=== PATIENT | male | born 1995 | race Caucasian/White ===

== ENCOUNTER 2023-01-19 23:39 | Emergency (ER) | payer OTHER, SELFPAY ==
[2023-01-19 23:44] VITALS: BP 135/85; PULSE 84; PULSE 88; RESP 18; TEMP 36.8; O2SAT 99; BMI 23.7
[2023-01-20 00:40] VITALS: BP 128/84; PULSE 78; RESP 18; TEMP 36.7; O2SAT 99
--- NOTE | 2023-01-21 11:13 | ED_ITS ---
HPI - Extremity Injury (Lower) General Chief Complaint: Extremity Pain/Injury, Lower Stated Complaint: Left foot toe injury Time Seen by Provider: 01/19/23 23:44 History of Present Illness HPI Narrative: 27-year-old young man here with significant other with complaint of left great toe pain. Dropped a heavy item on this toe late yesterday and pain has been persistent and throbbing. Hard to rest. Able to ambulate without marked difficulty. It appears that has consider that there is a subungual hematoma some sort and so head tried trephinated with a paperclip and machine brusher without success. Related Data Previous Rx's Medication Instructions Recorded dextroamphetamine-amphetamine 10 10 mg PO BID #60 tabs 01/21/23 mg tablet (Adderall) Allergies Allergy/AdvReac Type Severity Reaction Status Date / Time hydrocodone Allergy Intermediate Rash Verified 01/19/23 23:46 [facility] Medical History History of concussion (2014) ?Z87.820 - Personal history of traumatic brain injury (ICD-10) History of reduction of closed fracture (10/31/11) ?Z87.81 - Personal history of (healed) traumatic fracture (ICD-10) History of varicella (05/01/10) ?Z86.19 - Personal history of other infectious and parasitic diseases (ICD- 10) Reactive airway disease (05/16/07) ?J45.909 - Unspecified asthma, uncomplicated (ICD-10) Recurrent sinusitis (05/16/07) ?J32.9 - Chronic sinusitis, unspecified (ICD-10) Surgical History History of esophagogastroduodenoscopy (EGD) ?Z98.890 - Other specified postprocedural states (ICD-10) History of placement of ear tubes (05/16/07) ?Z96.22 - Myringotomy tube(s) status (ICD-10) History of right inguinal hernia repair (12/03/13) ?Z98.890 - Other specified postprocedural states (ICD-10) ?Z87.19 - Personal history of other diseases of the digestive system (ICD-10) History of sinus surgery (05/22/07) ?Z98.890 - Other specified postprocedural states (ICD-10) History of tonsillectomy and adenoidectomy (05/16/07) ?Z90.89 - Acquired absence of other organs (ICD-10) Family History Father Hyperlipidemia High blood pressure Social History Narrative: does not drink alcohol, does not use illicit drugs, non smoker Smoking Status: Never smoker Second hand tobacco smoke exposure: No How often do you have a drink containing alcohol: never How often do you have six or more drinks on one occasion: Never AUDIT-C Alcohol total score: 0 Non-prescribed substance use: denies use Exam Narrative: Exam Narrative: Pleasant. NAD. Uncomfortable and apprehensive though as I get around/move around his left great toe. I do not see any plantar bruising. Does not appear to be involvement of the bony aspect of the toe. There is a subtle and broad subungual hematoma involving most of the proximal aspect of the nail. Looks like there has been small pinprick type trauma to the nail lateral medial aspect consistent with attempt at trephination. There is a little swelling actually even at the distal soft tissue wear it makes contact with the remaining nail. Const: Documenting provider has reviewed patient's vital signs: yes Course Vital Signs Vital signs: Initial Vital Signs Temperature 98.2 F 01/19/23 23:44 Temperature Source Temporal Artery Scan 01/19/23 23:44 Pulse Rate 88 01/19/23 23:44 Respiratory Rate 18 01/19/23 23:44 Blood Pressure 135/85 01/19/23 23:44 Blood Pressure Mean 101 01/19/23 23:44 Blood Pressure Position Sitting 01/19/23 23:44 Pulse Oximetry 99 01/19/23 23:44 Oxygen Delivery Method Room Air 01/19/23 23:44 Vital Signs Temperature 98.2 F 01/19/23 23:44 Pulse Rate 88 01/19/23 23:44 Respiratory Rate 18 01/19/23 23:44 Blood Pressure 135/85 01/19/23 23:44 Pulse Oximetry 99 01/19/23 23:44 Oxygen Delivery Method Room Air 01/19/23 23:44 Temperature 98.0 F 01/20/23 00:40 Pulse Rate 78 01/20/23 00:40 Respiratory Rate 18 01/20/23 00:40 Blood Pressure 128/84 01/20/23 00:40 Pulse Oximetry 99 01/20/23 00:40 Oxygen Delivery Method Room Air 01/20/23 00:40 MDM - Extremity Injury (Lower) MDM Narrative Medical decision making narrative: I do think that subungual hematoma given high describes the accident as most likely answer for why he is having the pain. We can tests this with trephination and if he gets immediate relief maybe stop there. I did express some concern about potential fracture/tuft fracture though think less likely. He would like to proceed with trephination here as even if there is small for fracture, he acknowledges that it would not likely change treatment plan. I note that expectations might be different though. I do return with trephinating wand. Activating heat and placing then in the proximal medial nail area am able to squeeze out perhaps 2 mL of bloody/ blood liquid. He does note improvement of his pain. The fullness of the distal soft tissue was also diminished. See patient discharge plan Medical Records Attestation: I reviewed the patient's medical records. Discharge Plan Discharge Clinical Impression: Subungual hematoma of great toe of left foot Patient Disposition: Home w/ Parent or Adult Condition: Improved Additional Instructions: Elevate, ibuprofen for comfort. Might need to limit ambulation in the next few days. Good thing the weather is better so you can wear those flip-flops I s uppose. If pain does not seem to be improving much in the next couple of days, consider being seen again for potential imaging. If the pain seems to be associated with the reaccumulation of fluid/blood however, might be worth trying to trephinate/drain again. Prescriptions: No Action dextroamphetamine-amphetamine [Adderall] 10 mg tablet 10 mg PO BID Qty: 60 0RF Rx Instructions: administer doses at least 4-6 hours apart Follow Up/Referrals: Ole Johnson PA-C [Primary Care Provider] - Stand Alone Forms: [employer] Info Instructions
== END 2023-01-20 00:40 | disposition home or self-care (01) ==
LOC: ED 01-20 00:28
PROVIDERS: Emergency Provider Family Medicine; PCP Physician Assistant Medical
DX: S90.212A Contusion of left great toe with damage to nail, initial encounter (principal); W20.8XXA Other cause of strike by thrown, projected or falling object, initial encounter
CPT/HCPCS: 11740; 99283; 99284

== ENCOUNTER 2024-06-03 11:22 | Outpatient (CLI) | payer OTHER, SELFPAY | END 2024-06-03 11:23 | disposition home or self-care (01) | PROVIDERS: PCP Physician Assistant Medical; Visit Provider Physician Assistant Medical | DX: R35.0 Frequency of micturition (principal); F90.0 Attention-deficit hyperactivity disorder, predominantly inattentive type; Z13.6 Encounter for screening for cardiovascular disorders | CPT/HCPCS: 80053; 80061; 84443 ==

== ENCOUNTER 2025-01-21 23:26 | Emergency (ER) | payer OTHER, SELFPAY ==
--- OUTSIDE RECORDS SUMMARY | 2025-01-21 23:29 | XMS_ITS | Clinical Summary ---
Author Organization [employer] [facility] Address [facility] [place] [address] Care Team Providers Care Sales And Merchandising Associate Name Role Phone Lizandro Amador MD Primary Care Provider Allergies Active Allergy Reactions Criticality Noted Date Comments Hydrocodone-Acetaminophen Rash Medium 09/25/2022 Medications pantoprazole (PROTONIX) 40 mg delayed-release tabletIndications: Gastroesophageal reflux disease without esophagitis Take 1 tablet by mouth once daily. 30 tablet 5 8 Active dextroamphetamine- amphetamine (ADDERALL XR) 20 mg Extended-Release capsuleIndications :Attention deficit hyperactivity disorder (ADHD), predominantly inattentive type Take 1 capsule by mouth once daily 30 capsule 9 Active dextroamphetamine- amphetamine (ADDERALL XR) 20 mg Extended-Release capsuleIndications :Attention deficit hyperactivity disorder (ADHD), predominantly inattentive type Take 1 capsule by mouth once daily 30 capsule 9 Active dextroamphetamine- amphetamine (ADDERALL XR) 20 mg Extended-Release capsuleIndications :Attention deficit hyperactivity disorder (ADHD), predominantly inattentive type Take 1 capsule by mouth once daily 30 capsule 9 Active metroNIDAZOLE 0.75 % creamIndications:A cne rosacea Apply topically to affected area(s) 2 times daily. 45 g 0 Active Active Problems Problem Noted Date Diagnosed Date Attention deficit hyperactiv ity disorder (ADHD), predominantly inattentive type 09/10/2017 ADD (attention deficit disorder) 10/02/2016 Controlled substance agreement signed 10/02/2016 Overview (08/06/2017): I have queried the [place] Prescription Monitoring Program 08/06/2017 for this patient for the preceding 6 months, reviewed the report provided by my proxy delegate. I have not identified any concerns. Lili Latham CMA ([facility]) 08/06/2017...3:42 PM I have queried the [place] Prescription Monitoring Program 02/08/2017 for this patient for the preceding 6 months, reviewed the report provided by my proxy delegate. I have not identified any concerns. Lili Latham CMA ([facility]) 02/08/2017...8:04 AM Esophageal reflux 04/30/2006 Streptococcal sore throat 12/26/2005 Resolved Problems Problem Noted Date Diagnosed Date Resolved Date ASTHMA, moderated persistant 07/08/2006 01/15/2017 Immunizations Immunization Administration Dates Next Due DTaP 01/11/2003, 9,1997,1997, 1997 Hepatitis B (Peds) 1997,1997, 997 Hib Conjugate, Unspecified 10/19/1998,1997 ,1997,1997 Inactivated Polio Vaccine 01/11/2003,10/19/1998, 1997,1997 Influenza, IIV3 (Age >=3 years) 10/21/2003,09/21 MMR 01/11/2003,10/19/1998 Tdap 05/01/2010 Family History Medical History Relation Name Comments Genetic Other Mother: bled se verely after tonsillectomy but no probs with deliveries. Same hx with GM and aunt.~Father: A\T\ W~GrPrs: CVA Other Paternal Grandmother macular degeneration Relation Name Status Comments Other Paternal Grandmother Social History Tobacco Use Types Packs/Day Years Used Date Smoking Tobacco: Never Smokeless Tobacco: Never Comments:non smokers at home Alcohol Use Standard Drinks/Week Comments Not Asked 0 (1 standard drink = 0.6 oz pur e alcohol) Alcoholic Drinks/day: 0 PHQ-2 Answer Date Recorded PHQ-2 Score 0 12/13/2018 Sex and Gender Information Value Date Recorded Sex Assigned at Not on file Legal Sex Male 5:27 AM FLATCAR WHACKER Gender Identity Not on file Sexual Orientation Not on file Obstetrics History Last Filed Vital Signs Vital Sign Reading Time Taken Comments Blood Pressure 128/78 08/29/2018 2:10 PM FLATCAR WHACKER Pulse 80 08/29/2018 1:49 PM FLATCAR WHACKER Temperature 36.5 C (97.7 F) 08/29/2018 1:49 PM FLATCAR WHACKER Respiratory Rate 14 08/29/2018 1:49 PM FLATCAR WHACKER Oxygen Saturation 100% 08/29/2018 1:49 PM FLATCAR WHACKER Inhaled Oxygen Concentration - - Weight 73.9 kg (163 lb) 08/29/2018 1:49 PM FLATCAR WHACKER Height 175.3 cm (5' 9) 08/29/2018 1:49 PM FLATCAR WHACKER Body Mass Index 24.07 08/29/2018 1:49 PM FLATCAR WHACKER Plan of Treatment Health Maintenance Due Date Last Done Comments HIV for age 15-65 2012 Hepatitis C screening for age 18-79 2015 BMI (ht and wt on same day) for age 18+ 08/29/2019 08/29/2018, 09/03/2017, 08/06/2017, Additional history exists Depression screening for age 12+ 08/29/2019 08/29/2018, 08/06/2017, 02/08/2017, Additional history exists Tetanus booster 05/01/2020 05/01/2010 COVID-19 vaccine series ( season) 2024 Influenza Vaccine (Season Ended) 2025 10/21/2003, 09/21/2003 Tdap Completed 05/01/2010 Pneumococcal series for age 6-49 Aged Out No longer eligible based on patient's age to complete this topic Insurance Care Teams Sales And Merchandising Associate Relationship Specialty Start Date End Date Lizandro Amador MD [address] [place] [address] PCP - General Family Practice 10/15/16
[2025-01-21 23:34] VITALS: BP 147/67; PULSE 73; TEMP 36.9; O2SAT 96; BMI 25.1
--- NOTE | 2025-01-21 23:54 | ED_ITS ---
HPI - General Adult General Chief complaint: Extremity Pain/Injury, Lower Stated complaint: left leg injury Time Seen by Provider: 01/21/25 23:46 History of Present Illness HPI narrative: Patient is a 29-year-old gentleman who 4 days ago has had in the left medial thigh via hockey pocket. He had pain and discomfort now has a ecchymoses extending into the medial knee and proximal calf. He has had no chest pain or shortness of breath. Ecchymoses is tender but no significant warmth. He has had no fevers no chills no night sweats otherwise been feeling fine. No history of any other medical problems and certainly no history of any clotting disorders. Related Data Previous Rx's ?Medication ?Instructions ?Recorded aluminum chloride 20 % topical 1 applic topical QHS 3 days #60 mL 11/12/23 solution (Drysol Dab-O-Matic) dextroamphetamine-amphetamine 10 10 mg PO BID #60 tabs 12/14/25 mg tablet (Adderall) dextroamphetamine-amphetamine 10 10 mg PO BID #60 tabs 12/14/25 mg tablet (Adderall) dextroamphetamine-amphetamine 10 10 mg PO BID #60 tabs 12/14/25 mg tablet (Adderall) Allergies Allergy/AdvReac Type Severity Reaction Status Date / Time hydrocodone Allergy Intermediate Rash Verified 12/14/24 10:00 Review of Systems Status of ROS: Reports: 10 or more systems reviewed and unremarkable except as noted in History and below [facility] Medical History Urinary frequency ?R35.0 - Frequency of micturition (ICD-10) Subungual hematoma of great toe of left foot ?S90.212A - Contusion of left great toe with damage to nail, initial encounter (ICD-10) Recurrent sinusitis (05/16/07) ?J32.9 - Chronic sinusitis, unspecified (ICD-10) Reactive airway disease (05/16/07) ?J45.909 - Unspecified asthma, uncomplicated (ICD-10) History of varicella (05/01/10) ?Z86.19 - Personal history of other infectious and parasitic diseases (ICD- 10) History of reduction of closed fracture (10/31/11) ?Z87.81 - Personal history of (healed) traumatic fracture (ICD-10) History of concussion (2015) ?Z87.820 - Personal history of traumatic brain injury (ICD-10) Surgical History History of tonsillectomy and adenoidectomy (05/16/07) ?Z90.89 - Acquired absence of other organs (ICD-10) History of sinus surgery (05/22/07) ?Z98.890 - Other specified postprocedural states (ICD-10) History of right inguinal hernia repair (12/03/13) ?Z98.890 - Other specified postprocedural states (ICD-10) ?Z87.19 - Personal history of other diseases of the digestive system (ICD-10) History of placement of ear tubes (05/16/07) ?Z96.22 - Myringotomy tube(s) status (ICD-10) History of esophagogastroduodenoscopy (EGD) ?Z98.890 - Other specified postprocedural states (ICD-10) Family History Father Hyperlipidemia High blood pressure Social History Narrative: does not drink alcohol, does not use illicit drugs, non smoker Smoking Status: Never smoker Do you use any of these nicotine containing products: None Second hand tobacco smoke exposure: No How often do you have a drink containing alcohol: never How often do you have six or more drinks on one occasion: Never AUDIT-C Alcohol total score: 0 Non-prescribed substance use: denies use service: No Exam Narrative: Exam Narrative: EXAM GENERAL: Patient appears comfortable and well. EYES: No scleral icterus. ENT: Tympanic membranes and oropharynx normal. THYROID: no thyroid nodules or thyromegaly. LYMPH: No supraclavicular or cervical lymphadenopathy. SKIN: Visible skin seen during exam normal or with benign process only. EXT: Ecchymosis noted over the medial thigh extending to the left knee and the proximal calf. Minimal pain to palpation HEART: Regular rate and rhythm with no murmurs, rubs, or gallops. LUNGS: Clear to auscultation bilaterally with no crackles or wheezes. ABD: Soft, non tender, non distended. PSYCH: Good eye contact, speech is not pressured. Const: Vital Signs, click to edit/add: Vital Signs - 24 hr 01/21/25 23:34 Temperature 98.4 F Pulse Rate [Right Radial] 73 Blood Pressure [Ri ght Upper Arm] 147/67 H Pulse Oximetry 96 Oxygen Delivery Me thod Room Air Course Course ED Course: Patient seen examined. Ultrasound pending. Vital Signs Vital signs: Initial Vital Signs Temperature 98.4 F 01/21/25 23:34 Temperature Source Temporal Artery Scan 01/21/25 23:34 Pulse Rate 73 01/21/25 23:34 Pulse Rhythm Regular 01/21/25 23:34 Blood Pressure 147/67 H 01/21/25 23:34 Blood Pressure Mean 93 01/21/25 23:34 Pulse Oximetry 96 01/21/25 23:34 Oxygen Delivery Method Room Air 01/21/25 23:34 Vital Signs Temperature 98.4 F 01/21/25 23:34 Pulse Rate 73 01/21/25 23:34 Blood Pressure 147/67 H 01/21/25 23:34 Pulse Oximetry 96 01/21/25 23:34 Oxygen Delivery Method Room Air 01/21/25 23:34 Temperature 98.4 F 01/21/25 23:34 Pulse Rate 73 01/21/25 23:34 Blood Pressure 147/67 H 01/21/25 23:34 Pulse Oximetry 96 01/21/25 23:34 Oxygen Delivery Method Room Air 01/21/25 23:34 Medical Decision Making MDM Narrative Medical decision making narrative: Patient presents with pain and swelling as well as ecchymosis over the left thigh. Ultrasound is negative for DVT. Does have area of ecchymosis I did recommend warm compresses Tylenol and advancement of activity as tolerated. Discharge Plan Discharge Clinical Impression: Bruise Patient Disposition: Home, Self-Care Condition: Stable Instructions: Contusion in Adults (ED) Additional Instructions: Warm compresses Tylenol Advanced activity as tolerated. Activity Level: No Restrictions Discharge Diet: Regular Prescriptions: No Action Drysol Dab-O-Matic 20 % solution 1 applic topical QHS 3 Days Qty: 60 1RF dextroamphetamine-amphetamine [Adderall] 10 mg tablet 10 mg PO BID Qty: 60 0RF Rx Instructions: administer doses at least 4-6 hours apart dextroamphetamine-amphetamine [Adderall] 10 mg tablet 10 mg PO BID Qty: 60 0RF Rx Instructions: administer doses at least 4-6 hours apart dextroamphetamine-amphetamine [Adderall] 10 mg tablet 10 mg PO BID Qty: 60 0RF Rx Instructions: administer doses at least 4-6 hours apart Follow Up/Referrals: Ole Johnson PA-C [Primary Care Provider] - Stand Alone Forms: [employer] Info Instructions
--- OUTSIDE RECORDS SUMMARY | 2025-01-22 00:03 | XMS_ITS | Clinical Summary ---
Author Organization [employer] [facility] [employer] Address [facility] [place] [address] Care Team Providers Care Coal Or Ore Controller Name Role Phone Lizandro Amador MD Primary [...] not identified any concerns. Lili Latham CMA ([facility]) 08/06/2017...3:42 PM I have queried the [place] Prescription Monitoring Program 02/08/2017 for this patient for the preceding 6 months, reviewed the report provided by my proxy delegate. I have not identified any concerns. Lili Latham CMA ([facility]) 02/08/2017...8:04 AM Esophageal reflux 04/30/2006 Streptococcal sore [...] on file Legal Sex Male 5:27 AM WHEELAGE CLERK Gender Identity Not on file Sexual Orientation Not on file Obstetrics History Last Filed Vital Signs Vital Sign Reading Time Taken Comments Blood Pressure 128/78 08/29/2018 2:10 PM WHEELAGE CLERK Pulse 80 08/29/2018 1:49 PM WHEELAGE CLERK Temperature 36.5 C (97.7 F) 08/29/2018 1:49 PM WHEELAGE CLERK Respiratory Rate 14 08/29/2018 1:49 PM WHEELAGE CLERK Oxygen Saturation 100% 08/29/2018 1:49 PM WHEELAGE CLERK Inhaled Oxygen Concentration - - Weight 73.9 kg (163 lb) 08/29/2018 1:49 PM WHEELAGE CLERK Height 175.3 cm (5' 9) 08/29/2018 1:49 PM WHEELAGE CLERK Body Mass Index 24.07 08/29/2018 1:49 PM WHEELAGE CLERK Plan of Treatment Health Maintenance Due Date [...] to complete this topic Insurance Care Teams Coal [employer] Ore Controller Relationship Specialty Start Date End Date Lizandro Amador MD [address] [place] [address] PCP - General Family Practice 10/15/16
--- NOTE | 2025-01-22 00:26 | CRLHL7_ITS ---
For Patients: As a result of the Century Cures Act, medical imaging exams and procedure reports are released immediately into your electronic medical record. You may view this report before your referring provider. If you have questions, please contact your health care provider. Indication: Pain and swelling Technique: DVT ultrasound of the left lower extremity. Grayscale and color Doppler imaging utilized. Duplex/spectral analysis used. Compression and augmentation as clinically warranted. Comparison: None Findings: All vessels are grossly compressible without evidence of filling defect to suggest DVT. No superficial thrombosis appreciated. Soft tissues are unremarkable. Impression: No significant sonographic abnormality appreciated. Dictated by Hitesh Curry MD @ 01/22/2025 1:10:06 AM (Electronically Signed)
== END 2025-01-22 01:08 | disposition home or self-care (01) ==
PROVIDERS: Emergency Provider Internal Medicine; PCP Physician Assistant Medical
DX: S70.12XA Contusion of left thigh, initial encounter (principal)
CPT/HCPCS: 93971; 99283